=== PATIENT | male | born 1935 | race Caucasian/White ===

== ENCOUNTER 2023-06-09 09:08 | Emergency (ER) | payer MEDICARE, MEDICAID, SELFPAY ==
[2023-06-09] VITALS (37 sets, daily range): BP systolic 103–180; BP diastolic 54–88; PULSE 71–98; RESP 12–23; TEMP 36.4; O2SAT 97–100
--- NOTE | ~2023-06-09 | XR_ITS ---
XR chest 1V portable DATE: 06/09/2023 10:07 INDICATION: Wheezing. Possible aspiration, pneumonia. TECHNIQUE: Portable AP chest on 06/09/2023 at 1006 hours COMPARISON: None FINDINGS: Heart size appears within normal range. There is aortic calcification and tortuosity. No hi lar or mediastinal enlargement is evident. There is mild infiltrate or atelectasis in the right mid and lower lung zones. Questionable 1 cm lateral mid left lung opacity versus composite shadowing of overlapping ribs and sc apula. Osteopenia. IMPRESSION: Mild right mid and lower lung infiltrate and/or atelectasis. Cannot exclude pneumonia or aspiration Questionable 1 cm nodular density, lateral left midlung Reviewed, dictated and finalized at location A.
--- NOTE | 2023-06-09 09:49 | ED.NAVMDI ---
HPI - Nausea/Vomiting/Diarrhea General Chief complaint: Nausea/Vomiting/Diarrhea Stated complaint: n/v, AMS History of Present Illness HPI Narrative: 87-year-old male with a history of Parkinson's disease, bilateral inguinal hernia without obstruction or gangrene, dysphagia, hypothyroidism, schizoaffective disorder, hypertension, CKD stage III who is normally ANO x2-3 reports for evaluation for emesis, no bowel movement in 3 days, decreased p.o. intake and change in mental status for the past few days. The patient is somnolent and a poor historian. He is able to answer some questions and does arouse with verbal stimulation. Per the custodial TAPER/FINISHER, the patient has had multiple episodes of emesis, 2 yesterday and 3 to this morning. She also reports new onset wheezing within the past few days as well as decreased p.o. intake. States he has been more somnolent and agitated. She reports the hernia in his scrotum seems to have become larger. When prompted, the patient does state that he has abdominal pain and emesis. He denies chest pain, shortness of breath or difficulty breathing, back pain. Related Data Allergies Allergy/AdvReac Type Severity Reaction Status Date / Time ciprofloxacin Allergy Unknown Verified 06/09/23 10:06 Review of Systems Review of Systems: CONSTITUTIONAL: Denies fever, chills EYES: Denies visual changes, redness, or discharge. ENT: Denies rhinorrhea, congestion, sore throat, or otalgia. CARDIOVASCULAR: Denies chest pain, palpitations, or edema. RESPIRATORY: See HPI GASTROINTESTINAL: See HPI GENITOURINARY: See HPI SKIN: Denies rash or itching. MUSCULOSKELETAL: Denies back pain, joint pain, or myalgia. NEUROLOGIC: Denies headache, numbness, dizziness, or weakness. PSYCHIATRIC: Denies anxiety or depression. Exam Narrative: GENERAL: Ill-appearing, elderly man. Somnolent. Arousable to physical stimuli and some verbal stimuli. Auditory wheezing and rattling. HEAD: Normocephalic EYES: PERRLA ENT: Nares clear. Mucous membranes dry. Oropharynx without tonsillar hypertrophy exudate or other lesions. NECK: Supple. CHEST: Auditory wheezing and rattling. Wheezing in the right upper lobe. Satting 98% on room air, no active respiratory distress. HEART: Regular rate and rhythm. No murmur heard. Normal peripheral pulses. ABDOMEN: Hyperactive normal active bowel sounds. Distention. Generalized abdominal tenderness with intermittent guarding. No rebound. No CVA tenderness. : Large left inguinal hernia extending into the scrotum. Not easily reduced. No overlying erythema, or edema. No crepitus to the perineum. EXTREMITIES: Normal range of motion. No edema. SKIN: Warm, dry, no rash. NEURO: No focal deficits. Alert and oriented x2. Moving all extremities spontaneously. Resting tremor. PSYCH: Confused and agitated. Incoherent speech. Course Vital Signs Vital signs: Vital Signs Temperature 97.6 F 06/09/23 09:09 Pulse Rate 78 06/09/23 09:09 Respiratory Rate 20 06/09/23 09:09 Blood Pressure 180/88 H 06/09/23 09:09 Pulse Oximetry 98 06/09/23 09:09 Oxygen Delivery Room Air 06/09/23 09:09 Temperature 97.6 F 06/09/23 09:09 Pulse Rate 72 06/09/23 13:45 Respiratory Rate 16 06/09/23 13:45 Blood Pressure 134/60 06/09/23 13:41 Pulse Oximetry 100 06/09/23 13:45 Oxygen Delivery Room Air 06/09/23 10:00 MDM - Nausea/Vomiting/Diarrhea MDM Narrative Medical decision making narrative: 87-year-old male arrives via EMS from [facility] for evaluation of wheezing, decreased p.o. intake, no bowel movement in 3 days and emesis, altered mental status. See HPI for further history. Vitals significant for elevated blood pressure, otherwise unremarkable. He is afebrile. Exam is significant for the above. Patient is DNR and comfort measures only. I discussed the case with patient's daughter, Fernanda and patient's and POA, Cassidy Penaloza. We discussed my concern for po
[2023-06-09] MEDS: IPRATROPIUM BR 0.02% INH SOLN 0.5 MG/2.5 ML VIAL INHALATION (09:56)
[2023-06-09] MEDS: ALBUTEROL SULFATE NEB 2.5 MG/3 ML INH INHALATION (09:56)
--- NOTE | 2023-06-09 10:31 | PC.NURSE ---
pt unable to keep finger spo2 monitor on. temporal spo2 cord applied. pt o2 sat 99% [id number]
[2023-06-09] MEDS: LORazepam INJ (*CRX) 2 MG/ML VIAL 1 MG IV PUSH (10:54)
[2023-06-09] MEDS: ONDANSETRON INJ 4 MG/2 ML VIAL IV PUSH (10:54)
--- NOTE | 2023-06-09 10:55 | PCCCNOTE ---
Addendum entered by Cortney Thibodeaux RN 06/09/23 11:13: CC sent referral to [facility] at 11am. Original Note: CC received a call from about initiating hospice for patient. MD has spoke with whom would like services at [facility]. CC called and spoke with Valorie from [facility] at [phone]. Valorie stated they work with [facility] and [facility]. CHRISTIANO then called and spoke with patients [phone]. She is agreeable to a referral being sent to [facility]. plan is to DC patient today back to [facility] where hospice services will be initiated. CC will continue to follow for any other needs that may arise.
[2023-06-09] MEDS: Please add drug allergy info to patient profile. 1 EACH XX (10:56)
--- NOTE | 2023-06-09 11:01 | PC.NURSE ---
bed alarm applied on arrival to ED.
--- NOTE | 2023-06-09 13:08 | PC.NURSE ---
report and care given to JODI Torres. all questions answered.
--- NOTE | 2023-06-09 13:15 | PC.NURSE ---
Patient report received from JODI Umaña. All questions answered and care of patient assumed.
== END 2023-06-09 14:17 ==
PROVIDERS: Emergency Provider Physician Assistant; PCP Internal Medicine
DX: R11.10 Vomiting, unspecified (principal); R06.2 Wheezing; K59.00 Constipation, unspecified; G20.A1 Parkinson's disease without dyskinesia, without mention of fluctuations; I12.9 Hypertensive chronic kidney disease with stage 1 through stage 4 chronic kidney disease, or unspecified chronic kidney disease; N18.30 Chronic kidney disease, stage 3 unspecified; E03.9 Hypothyroidism, unspecified
CPT/HCPCS: 71045; 94640; 96361; 96374; 96375; 99284; J2060; J2405